=== PATIENT | male | born 1960 | race Caucasian/White ===

== ENCOUNTER 2021-05-01 10:52 | Observation (INO) ==
[2021-05-01 11:30] LABS: Basophils # 0.1 10*3/uL (0.0-0.2); Basophils % 0.7 % (0.0-0.8); Eosinophils # 0.1 10*3/uL (0.0-0.87); Hematocrit 42.4 VOL% (42.0-52.0); Hemoglobin 13.8 GM/DL (14.0-18.0); Immature Granulocytes % 0.4 %; Immature Granulocytes Absolute 0.03 #; Lymphocytes # 2.3 10*3/uL (1.4-4.0); Lymphocytes % 32.3 % (21.2-54.2); Mean Corpuscular HGB Conc 32.5 GM/DL (32-36); Mean Corpuscular Volume 85.8 FL (87-102); Mean Platelet Volume 10.4 FL (9.6-12.0); Monocytes % 6.6 % (1.7-12.7); Platelet Count 211 T/CUMM (130-400); Red Blood Count 4.94 MC/CUMM (3.8-5.5); Red Cell Distribution Width 12.7 % (9.3-17.3); White Blood Count 7.2 T/CUMM (4-12)
[2021-05-01 11:49] LABS: Bilirubin,Total 0.5 MG/DL (0.20-1.00); Calcium 9.1 MG/DL (8.5-10.1); Potassium 4.2 MMOL/L (3.5-5.1); Total Protein 7.6 G/DL (6.4-8.2)
[2021-05-01] MEDS ORDERED: KETOROLAC 30 MG/1 ML VIAL IV STA (11:57)
[2021-05-01] MEDS ORDERED: KETOROLAC 30 MG/1 ML VIAL ONE (11:58)
[2021-05-01 12:43] LABS: Barbiturates Screen,Urine Negative (Negative); Benzodiazepines Screen,Urine Negative (Negative); Cannabinoid Screen,Urine Negative (Negative); Opiate Screen,Urine Positive (Negative); Phencyclidine Screen,Urine Negative (Negative)
[2021-05-01] MEDS ORDERED: NITROGLYCERIN SL 0.4 MG TABLET SL PRN (14:22)
[2021-05-01] MEDS ORDERED: GLUCAGON 1 MG VIAL IM PRN ×2 (14:22)
[2021-05-01] MEDS ORDERED: ALUM/MAG/SIMETH/LIDO VISC 1:1 30 ML BOTTLE PO PRN (14:22)
[2021-05-01] MEDS ORDERED: ONDANSETRON 4 MG/2 ML VIAL IV PRN (14:22)
[2021-05-01] MEDS ORDERED: MORPHINE 2 MG/1 ML SYRINGE IV PRN (14:22)
[2021-05-01] MEDS ORDERED: DEXTROSE 50% 25 GM/50 ML VIAL IV PRN ×2 (14:22)
[2021-05-01] MEDS ORDERED: ACETAMINOPHEN 325 MG TABLET PO PRN (14:22)
[2021-05-01] MEDS ORDERED: ENOXAPARIN 40 MG/0.4 ML SYRINGE SUBCUT SCH (14:30)
[2021-05-01] MEDS: PANTOPRAZOLE 40 MG TABLET PO SCH (15:00)
[2021-05-01 18:09] LABS: Hepatitis B Core IgM Quant 0.09 Index; Hepatitis B Surface Ag Quant < 0.10 Index; Hepatitis B Surface Ag Result Non-Reactive (NonReactive); Hepatitis C Virus Ab Quant 0.03 Index; Hepatitis C Virus Ab Result Non-Reactive (NonReactive)
[2021-05-01] MEDS: INSULIN REGULAR 100 UNIT/ML SUBCUT SCH ×2 (18:28→20:58)
[2021-05-01 18:45] LABS: High Sensitive Troponin I* 6.8 ng/L (0-78)
[2021-05-01] MEDS ORDERED: FAMOTIDINE 20 MG TABLET PO SCH (21:00)
[2021-05-02 05:57] LABS: Basophils # 0.1 10*3/uL (0.0-0.2); Basophils % 0.8 % (0.0-0.8); Eosinophils # 0.2 10*3/uL (0.0-0.87); Eosinophils % 2.8 % (0.00-10.9); Hematocrit 41.3 VOL% (42.0-52.0); Hemoglobin 13.3 GM/DL (14.0-18.0); Immature Granulocytes % 0.6 %; Immature Granulocytes Absolute 0.04 #; Lymphocytes # 1.8 10*3/uL (1.4-4.0); Lymphocytes % 28.5 % (21.2-54.2); Mean Corpuscular HGB Conc 32.2 GM/DL (32-36); Mean Corpuscular Volume 86.6 FL (87-102); Mean Platelet Volume 10.3 FL (9.6-12.0); Monocytes % 7.4 % (1.7-12.7); Neutrophils % 59.9 % (38.7-73.9); Platelet Count 177 T/CUMM (130-400); Red Blood Count 4.77 MC/CUMM (3.8-5.5); Red Cell Distribution Width 12.6 % (9.3-17.3); White Blood Count 6.4 T/CUMM (4-12)
[2021-05-02 06:28] LABS: Albumin 3.6 G/DL (3.4-5.0); Bilirubin,Total 0.5 MG/DL (0.20-1.00); Calcium 8.9 MG/DL (8.5-10.1); Osmolality,Calculated 281.7 MOS/KG (273-304); Risk Ratio 8.03; Thyroid Stimulating Hormone 2.28 uIU/ml (0.358-3.74); Total Protein 7.3 G/DL (6.4-8.2); VLDL Cholesterol 59.6 MG/DL
[2021-05-02] MEDS ORDERED: LOSARTAN 50 MG TABLET PO SCH ×2 (09:00)
[2021-05-02] MEDS ORDERED: hydroCHLOROthiazide 25 MG TABLET PO SCH (09:00)
[2021-05-02] MEDS ORDERED: ASPIRIN EC 325 MG TABLET PO SCH (09:00)
[2021-05-02] MEDS: INSULIN REGULAR 100 UNIT/ML SUBCUT SCH (09:04)
[2021-05-02] MEDS: PANTOPRAZOLE 40 MG TABLET PO SCH (09:04)
[2021-05-02 10:06] VITALS: BP 152/92
== END 2021-05-02 11:43 | disposition home or self-care (01) ==
LOC: N.ED 10:52 → N.EDINP 10:52 → N.TELES 15:58
PROVIDERS: ADMIT Internal Medicine; ATTEND Internal Medicine